=== PATIENT | male | born 1970 | race Two or more races ===

== ENCOUNTER 2016-07-12 14:20 | Emergency (ER) | payer OTHER ==
[2016-07-12 19:18] VITALS: BP 126/80
== END 2016-07-12 19:18 | disposition home or self-care (01) ==
LOC: ED 14:20
DX: S05.01XA Injury of conjunctiva and corneal abrasion without foreign body, right eye, initial encounter (principal); X58.XXXA Exposure to other specified factors, initial encounter; Y93.H2 Activity, gardening and landscaping; Y99.8 Other external cause status; Y92.89 Other specified places as the place of occurrence of the external cause